=== PATIENT | female | born 1985 | race Caucasian/White ===

== ENCOUNTER 2024-03-17 23:24 | Emergency (ER) | payer OTHER ==
[~2024-03-17] VITALS: Ht 162.6 cm; Wt 87.0 kg
[2024-03-17 23:33] VITALS: BP 143/88; PULSE 108; RESP 18; O2SAT 100
[2024-03-18] MEDS ORDERED: IMIT25 MT (01:46)
[2024-03-18 01:51] VITALS: TEMP 98.3
[2024-03-18] MEDS: ACETAMINOPHEN 325MG TABLET PO ONE (01:51)
[2024-03-18] MEDS: SUMATRIPTAN SUCCINATE 25MG TABLET PO ONE (01:51)
== END 2024-03-18 02:54 | disposition home or self-care (01) ==
LOC: ER 23:24
DX: G43.909 Migraine, unspecified, not intractable, without status migrainosus (principal); Z98.890 Other specified postprocedural states; Z88.0 Allergy status to penicillin
CPT/HCPCS: 81025; 93005; 99283